=== PATIENT | female | born 1935 | race Caucasian/White ===

== ENCOUNTER 2016-11-27 21:25 | Emergency (ER) | payer MEDICARE, BC ==
[2015-12-25 11:12] VITALS: BMI 22.3
[~2016-11-27 21:25] MED LIST: AMOXICILLIN500 M1 PO; ARMOUR THYROID120 MG PO; CHERATUSSIN AC473 ML PO; COLACE100 MG PO; COREG25 MG PO; ELIQUIS5 MG PO; FISH OIL 1,0001 CA1 PO; MECLIZINE HCL25 MG PO; NEURONTIN 300300 MG PO; ONDANSETRON4 MG/2 M3 IV; PROTONIX40 MG PO; SINGULAIR10 MG PO; SYNTHROID88 MCG PO; TIKOSYN250 MCG PO; TOPROL XL25 MG PO; VALIUM5 MG PO; ZANAFLEX4 MG PO; ZOFRAN4 MG PO; ZOLOFT100 MG PO; ZYRTEC10 MG PO
[2016-11-27 23:09] LABS: BASOPHILS 0.3 % (0.0-2.0); EOSINOPHILS 3.7 % (0-7); HEMOGLOBIN 9.6 g/dL (12-16); IMMATURE GRANULOCYTES 0.3 % (0-5); LYMPHOCYTES 33.8 % (15-50); MCH 28.8 pg (26.0-34.0); MCV 90.1 fL (80.0-100.0); MEAN PLATELET VOLUME 8.7 fL (7.4-10.4); MONOCYTES 10.8 % (2-11); NEUTROPHILS 51.1 % (40-80); RBC 3.33 10x6/uL (4.00-5.40); RDW 13.4 % (11.5-14.5); WBC 6.2 10x3/uL (4.8-10.8)
[2016-11-27 23:17] LABS: PLATELET COUNT 189 10x3/uL (130-400)
[2016-11-27 23:22] LABS: ANION GAP 13.5 mmol/L (8-16); BILIRUBIN - TOTAL 0.2 mg/dL (0.2-1.3); CALCIUM 8.5 mg/dL (8.5-10.1); CARBON DIOXIDE 26.9 mmol/L (21.0-32.0); POTASSIUM - SERUM 3.4 mmol/L (3.5-5.1); PROTEIN - SERUM 6.9 g/dL (6.4-8.2)
[2016-11-27 23:32] LABS: APTT 31.6 SECONDS (22.8-39.4); INR 1.13 (0.85-1.17); PROTIME 14.3 SECONDS (11.6-15.0)
== END 2016-11-27 23:56 | disposition home or self-care (01) ==
LOC: D.ER 21:25
PROVIDERS: Physician Assistant Medical
DX: S00.83XA Contusion of other part of head, initial encounter (principal); W18.30XA Fall on same level, unspecified, initial encounter; Y93.89 Activity, other specified; Y92.019 Unspecified place in single-family (private) house as the place of occurrence of the external cause; I48.91 Unspecified atrial fibrillation; J45.909 Unspecified asthma, uncomplicated; E20.9 Hypoparathyroidism, unspecified; Z95.0 Presence of cardiac pacemaker; Z86.73 Personal history of transient ischemic attack (TIA), and cerebral infarction without residual deficits; Z79.01 Long term (current) use of anticoagulants

== ENCOUNTER 2017-05-07 04:31 | Inpatient (IN) | payer MEDICARE, BC ==
[~2017-05-07] VITALS: Ht 162.6 cm; Wt 59.0 kg
[2017-05-07 05:08] LABS: APPEARANCE CLEAR (CLEAR); BILIRUBIN NEGATIVE (NEGATIVE); COLOR YELLOW (YELLOW); GLUCOSE NEGATIVE (NEGATIVE); KETONE NEGATIVE (NEGATIVE); LEUKOCYTE ESTERASE NEGATIVE (NEGATIVE); NITRITE NEGATIVE (NEGATIVE); PROTEIN NEGATIVE (NEGATIVE); SPECIFIC GRAVITY 1.015 (1.005-1.020); UROBILINOGEN NORMAL (NORMAL)
[2017-05-07 05:36] LABS: BASOPHILS 0.1 % (0-2); EOSINOPHILS 0.8 % (0-7); HEMOGLOBIN 9.4 g/dL (12-16); IMMATURE GRANULOCYTES 0.2 % (0-5); LYMPHOCYTES 12.5 % (15-50); MCH 28.6 pg (26.0-34.0); MCHC 32.4 g/dL (31.0-37.0); MCV 88.1 fL (80.0-100.0); MEAN PLATELET VOLUME 8.7 fL (7.4-10.4); MONOCYTES 9.5 % (2-11); NEUTROPHILS 76.9 % (40-80); PLATELET COUNT 174 10x3/uL (130-400); RBC 3.29 10x6/uL (4.00-5.40); WBC 9.1 10x3/uL (4.8-10.8)
[2017-05-07 05:50] LABS: ALBUMIN 2.8 g/dL (3.4-5.0); ANION GAP 9.1 mmol/L (8-16); BILIRUBIN - TOTAL 0.4 mg/dL (0.2-1.3); CALCIUM 8.5 mg/dL (8.5-10.1); CARBON DIOXIDE 29.5 mmol/L (21.0-32.0); CREATININE - SERUM 1.2 mg/dL (0.6-1.3); POTASSIUM - SERUM 3.6 mmol/L (3.5-5.1); PROTEIN - SERUM 6.5 g/dL (6.4-8.2)
--- NOTE | 2017-05-07 07:40 | NUR ---
PT AOX4 RESP EVEN AND NONLABORED PT DENIES NEEDS AT THIS TIME IV TO RIGHT FOREARM PATENT AND INTACT AT THIS TIME RIGHT KNEE BANDAGED FROM PREVIOUS SURGERY AT ANOTHER FACILITY. PICC TO RIGHT UPPER ARN PATENT AND INTACT AT THIS TIME FROM ANOTHER FACILITY. SRX2 BED AT LOWEST SETTING CALL LIGHT WITHIN REACH WILL CONTINUE TO MONITOR
[2017-05-07 09:08] VITALS: BP 111/55; BMI 22.3
--- NOTE | 2017-05-07 09:22 | NUR ---
PT AOX4 RESP EVEN AND NONLABORED PT DENIES NEEDS AT THIS TIME SRX2 BGED AT LOWEST SETTING CALL LIGHT WITHIN REACH WILL CONTINUE TO MONITOR
[2017-05-07] MEDS ORDERED: LEXAPRO10 MG PO (09:29)
[2017-05-07] MEDS ORDERED: DEXILANT60 MG PO (09:30)
[2017-05-07] MEDS ORDERED: FLUTICASONE PRO16 GM NASAL (09:31)
[2017-05-07 14:13] VITALS: BP 121/67
[2017-05-07 14:57] VITALS: Ht 162.6 cm; Wt 59.0 kg
[2017-05-07 16:46] VITALS: BP 128/77
--- NOTE | 2017-05-07 19:15 | NUR ---
REC REPORT, ASSUMED CARE OF PATIENT. ALERT/AWAKE DENIES PAIN OR ANY NEEDS. R UA PICC WITH NS INFUSING AT 30ML/HR. O2 AT 2L/NC. RR 18 EVEN U/L. ORIENTED TO CL FOR ANY NEEDS.
[2017-05-07 20:00] VITALS: BP 82/54
[2017-05-08 00:08] VITALS: BP 129/58
--- NOTE | 2017-05-08 00:11 | NUR ---
REC RT UPDRAFT TX. DENIES ANY NEEDS OR DISCOMFORTS.
--- NOTE | 2017-05-08 01:28 | NUR ---
REPORT RECEIVED FROM SHMUEL PRETTY AND CARE OF PT ASSUMED. PT RESTING QUIETLY AT THIS TIME. RIGHT PICC PATENT WITH NS INFUSING AT KVO. O2 IN USE AT 2L VIA NC. WILL MONITOR CLOSLEY FOR NEEDS.
[2017-05-08 04:00] VITALS: BP 129/66
[2017-05-08 04:31] LABS: BASOPHILS 0.4 % (0-2); EOSINOPHILS 3.1 % (0-7); HEMATOCRIT 28.4 % (36.0-48.0); IMMATURE GRANULOCYTES 0.4 % (0-5); LYMPHOCYTES 18.4 % (15-50); MCH 28.2 pg (26.0-34.0); MCHC 31.7 g/dL (31.0-37.0); MEAN PLATELET VOLUME 8.6 fL (7.4-10.4); MONOCYTES 9.1 % (2-11); NEUTROPHILS 68.6 % (40-80); PLATELET COUNT 164 10x3/uL (130-400); RBC 3.19 10x6/uL (4.00-5.40); RDW 14.9 % (11.5-14.5)
[2017-05-08 04:32] LABS: WBC 6.8 10x3/uL (4.8-10.8)
[2017-05-08 04:52] LABS: ALBUMIN 2.4 g/dL (3.4-5.0); ANION GAP 9.3 mmol/L (8-16); BILIRUBIN - TOTAL 0.5 mg/dL (0.2-1.3); CALCIUM 8.2 mg/dL (8.5-10.1); CARBON DIOXIDE 31.1 mmol/L (21.0-32.0); CREATININE - SERUM 1.3 mg/dL (0.6-1.3); POTASSIUM - SERUM 3.4 mmol/L (3.5-5.1)
--- NOTE | 2017-05-08 09:00 | NUR ---
ASSESSMENT COMPLETE. R PICC LINE PATENT. NS INFUSING AT KVO. O2 2L NC IN USE. DRESSING C/D/I TO R KNEE. DENIES ANY NEEDS AT THIS TIME.
--- NOTE | 2017-05-08 09:30 | NUR ---
CPM APPLIED TO R KNEE.
[2017-05-08 09:50] VITALS: BP 129/68
[2017-05-08 11:51] VITALS: BP 109/67
--- NOTE | 2017-05-08 12:30 | NUR ---
CPM REMOVED. UP TO BATHROOM WITH WALKER.
--- NOTE | 2017-05-08 15:00 | NUR ---
RESTING QUIETLY IN BED. CPM IN USE. FAMILY AT BEDSIDE. DENIES ANY NEEDS AT PRESENT.
[2017-05-08 16:20] VITALS: BP 110/64
--- NOTE | 2017-05-08 17:00 | NUR ---
NO CHANGES NOTED AT THIS TIME.
--- NOTE | 2017-05-08 19:00 | NUR ---
REPORT RECEIVED AND CARE OF PT ASSUMED. PT SITTING UP IN BED WATCHING TV. RIGHT PICC LINE SL. DRESSING ON RIGHT KNEE INTACT. WILL MONITOR CLOSELY FOR NEEDS.
[2017-05-08 20:00] VITALS: BP 133/57
--- NOTE | 2017-05-08 20:50 | NUR ---
HS MEDICATIONS GIVEN. WILL CONTINUE TO MONITOR FOR NEEDS.
--- NOTE | 2017-05-08 21:00 | NUR ---
GAVE HS SNACK OF CHOCOLATE ICE CREAM X2.
[2017-05-09] VITALS: BP 129/71
[2017-05-09 04:00] VITALS: BP 108/45
[2017-05-09 04:37] LABS: BASOPHILS 0.3 % (0-2); EOSINOPHILS 6.4 % (0-7); HEMATOCRIT 27.8 % (36.0-48.0); IMMATURE GRANULOCYTES 0.7 % (0-5); LYMPHOCYTES 23.4 % (15-50); MCH 28.9 pg (26.0-34.0); MCHC 32.4 g/dL (31.0-37.0); MCV 89.4 fL (80.0-100.0); MEAN PLATELET VOLUME 8.6 fL (7.4-10.4); NEUTROPHILS 57.2 % (40-80); PLATELET COUNT 179 10x3/uL (130-400); RBC 3.11 10x6/uL (4.00-5.40); RDW 14.7 % (11.5-14.5); WBC 5.8 10x3/uL (4.8-10.8)
[2017-05-09 04:44] LABS: ANION GAP 11.5 mmol/L (8-16); CALCIUM 8.6 mg/dL (8.5-10.1); CREATININE - SERUM 1.3 mg/dL (0.6-1.3); MAGNESIUM - SERUM 1.7 mg/dL (1.8-2.4); POTASSIUM - SERUM 3.5 mmol/L (3.5-5.1)
--- NOTE | 2017-05-09 07:33 | NUR ---
SLEEPING, NO DISTRESS NOTED, CALL LIGHT IN REACH, BED LOWEST POSITION, WILL CONTINUE TO MONITOR
[2017-05-09 08:00] VITALS: BP 140/65
[2017-05-09 11:00] VITALS: BP 129/71
[2017-05-09 20:00] VITALS: BP 124/56
[2017-05-10] VITALS: BP 160/76
--- NOTE | 2017-05-10 00:51 | NUR ---
RN NOTE: PT SLEEPING ON LEFT SIDE WITH EYES CLOSED AND UNLABORED BREATHING. O2 IN USE VIA NC AT 2L. WILL CONTINUE TO MONITOR FOR NEEDS. CALL LIGHT WITHIN REACH.
[2017-05-10 03:10] LABS: BASOPHILS 0.3 % (0-2); EOSINOPHILS 5.5 % (0-7); HEMOGLOBIN 9.7 g/dL (12-16); IMMATURE GRANULOCYTES 0.9 % (0-5); LYMPHOCYTES 23.1 % (15-50); MCH 28.7 pg (26.0-34.0); MCHC 32.3 g/dL (31.0-37.0); MCV 88.8 fL (80.0-100.0); MEAN PLATELET VOLUME 8.5 fL (7.4-10.4); MONOCYTES 12.9 % (2-11); NEUTROPHILS 57.3 % (40-80); PLATELET COUNT 195 10x3/uL (130-400); RBC 3.38 10x6/uL (4.00-5.40); RDW 14.5 % (11.5-14.5); WBC 5.8 10x3/uL (4.8-10.8)
[2017-05-10 03:25] LABS: ALBUMIN 2.5 g/dL (3.4-5.0); ANION GAP 9.5 mmol/L (8-16); BILIRUBIN - TOTAL 0.4 mg/dL (0.2-1.3); CALCIUM 8.9 mg/dL (8.5-10.1); CARBON DIOXIDE 33.1 mmol/L (21.0-32.0); CREATININE - SERUM 1.4 mg/dL (0.6-1.3); POTASSIUM - SERUM 3.6 mmol/L (3.5-5.1); PROTEIN - SERUM 6.3 g/dL (6.4-8.2)
[2017-05-10 04:00] VITALS: BP 137/50
--- NOTE | 2017-05-10 07:29 | NUR ---
PT RESTING IN BED WITH NO VISABLE SIGNS OF PAIN OR DISCOMFORT, NURSE IN ROOM. BED IN LOW POSITION AND CALL LIGHT WITHIN REACH. WILL CONTINUE TO MONITOR.
--- NOTE | 2017-05-10 07:45 | NUR ---
PT ASSESSEMNT COMPLETE NO ACUTE DISTRESS NOTED DRESSIN INTACT TO RIGHT KNEE. CLEAN AND DRY. ALL ADLS PER STAFF MINIMAL ASSIST PICC LINE NOTED TO RIGHT INNER ARM WITH NO FLUSH OR REDRAW.
[2017-05-10 08:59] VITALS: BP 173/77
--- NOTE | 2017-05-10 10:26 | NUR ---
Patient Name: LAILA NERI Admission Status: ER Accout number: [id number] Admission Date: 05-07-2017 : 1935 Admission Diagnosis: Attending: ERIS TRIPLETT Current LOS: 3 Anticipated DC Date: 05-13-2017 Planned Disposition: Home with Home Health Primary Insurance: MEDICARE A & B Discharge Planning Comments: CM MET WITH PATIENT REGARDING D/C NEEDS AND PLANS. PATIENT STATED SHE LIVES WITH HER SPOUSE (ELYSSA) AND WILL RETURN HOME AT DISCHARGE. PATIENT HAS 3 STEPS W/RAILS TO ENTER HOME AND NO STAIRS INSIDE. PATIENT STATED SHE HAS A NIECE THAT LIVES A FEW DOORS DOWN. PATIENT IS INDEPENDENT WITH HER CARE AND HAS A WALKER, BS COMMODE, SHOWER CHAIR, OXYGEN 2L, AND PORTABLE O2 AT HOME. PATIENTS PCP IS DR. AMARO AND PHARMACY IS [facility]. PATIENT WAS D/C FROM [facility] ON 05/06 AND WAS ADMITTED HERE ON 05/07. PATIENT IS CURRENT WITH [facility] AND MAURY DELIVERED HER ABX TO HER HOME ON THE . CM WILL CONTINUE TO FOLLOW PATIENT WITH D/C NEEDS AND PLANS. PCP DR. SONDRA FRITZ AT [facility]- [phone] ELYSSA (SPOUSE) [phone] Pelletizer: Cori Frances
--- NOTE | 2017-05-10 10:35 | NUR ---
Is the patient Alert and Oriented? Yes 0 * How many steps to enter\exit or inside your home? 3 W/RAILS 0 * PCP DR. AMARO 0 * Pharmacy [facility] 0 * Preadmission Environment Home with Family 0 * ADLs Independent 0 * Equipment Bedside Commode Oxygen Shower Chair Walker 0 * Other Equipment PORTABLE O2 ([employer] O2) 0 * Community resources currently utilized Home Health 0 * Please name any agencies selected above. [facility] 0 * Additional services required to return to the preadmission environment? Yes 0 * Can the patient safely return to the preadmission environment? Yes 0 * Has this patient been hospitalized within the prior 30 days at any hospital? Yes 0 Grand Total: 0
[2017-05-10 11:41] VITALS: BP 120/62
[2017-05-10] MEDS ORDERED: VANCOMYCIN 1 GM/1 G1 IV (13:23)
--- NOTE | 2017-05-10 14:32 | NUR ---
CM REASSESSMENT NOTE: PATIENT IS DISCHARGING HOME TODAY. FAMILY DRIVING HER. PATIENT IS CURRENT WITH [facility] AND THEY ARE AWARE OF DISCHARGE. JENNIFER IS DELIVERING ABX TONIGHT TO HOME. HORTENCIA JAMES
--- NOTE | 2017-05-10 17:31 | NUR ---
PT DISCHARGED TO HOME WITH HOME HEALTH CARE TO FOLLOW FOR IV ABT AT HOME
== END 2017-05-10 17:32 | disposition home health service (06) | DRG 195 ==
LOC: D.ER 04:31 → D.MS 07:51
PROVIDERS: Emergency Medicine; Family Medicine; ADMIT Family Medicine
PROC: 3C1ZX8Z Irrigation of Indwelling Device using Irrigating Substance, External Approach (ICD-10-PCS; principal; 2017-05-10)
DX: J18.9 Pneumonia, unspecified organism (principal); E87.70 Fluid overload, unspecified; J45.909 Unspecified asthma, uncomplicated; I10 Essential (primary) hypertension; Z95.0 Presence of cardiac pacemaker; I50.9 Heart failure, unspecified; I48.2 Chronic atrial fibrillation; K21.9 Gastro-esophageal reflux disease without esophagitis; J38.01 Paralysis of vocal cords and larynx, unilateral; D64.9 Anemia, unspecified

== ENCOUNTER → 2017-05-22 17:18 | Outpatient (CLI) | payer MEDICARE, BC ==
[2017-05-07 14:57] VITALS: BMI 22.3
[~2017-05-22 17:18] MED LIST changes: +DEXILANT60 MG PO; +FLUTICASONE PRO16 GM NASAL; +LEXAPRO10 MG PO; +VANCOMYCIN 1 GM/1 G1 IV
[2017-05-22 18:11] LABS: CREATININE - SERUM 1.3 mg/dL (0.6-1.3); VANCOMYCIN - TROUGH 12.3 ug/mL (10.0-20.0)
== END | disposition home or self-care (01) ==
LOC: D.LABREF 17:18
PROVIDERS: Specialist
DX: T84.53XA Infection and inflammatory reaction due to internal right knee prosthesis, initial encounter (principal); I11.0 Hypertensive heart disease with heart failure; I50.9 Heart failure, unspecified

== ENCOUNTER → 2017-05-26 13:52 | Outpatient (CLI) | payer MEDICARE, BC ==
[2017-05-07 14:57] VITALS: BMI 22.3
[2017-05-26 14:21] LABS: CREATININE - SERUM 1.3 mg/dL (0.6-1.3); VANCOMYCIN - TROUGH 13.4 ug/mL (10.0-20.0)
== END | disposition home or self-care (01) ==
LOC: D.LABREF 13:52
PROVIDERS: Specialist
DX: T84.53XA Infection and inflammatory reaction due to internal right knee prosthesis, initial encounter (principal); Z79.2 Long term (current) use of antibiotics; Z45.2 Encounter for adjustment and management of vascular access device

== ENCOUNTER → 2017-05-30 15:09 | Outpatient (CLI) | payer MEDICARE, BC ==
[2017-05-07 14:57] VITALS: BMI 22.3
[2017-05-30 15:38] LABS: BASOPHILS 1.7 % (0-2); EOSINOPHILS 10.1 % (0-7); HEMATOCRIT 30.8 % (36.0-48.0); HEMOGLOBIN 9.8 g/dL (12-16); LYMPHOCYTES 37.7 % (15-50); MCH 28.5 pg (26.0-34.0); MCHC 31.8 g/dL (31.0-37.0); MCV 89.5 fL (80.0-100.0); MEAN PLATELET VOLUME 9.8 fL (7.4-10.4); NEUTROPHILS 37.5 % (40-80); PLATELET COUNT 188 10x3/uL (130-400); RBC 3.44 10x6/uL (4.00-5.40); RDW 14.2 % (11.5-14.5); WBC 3.6 10x3/uL (4.8-10.8)
[2017-05-30 15:56] LABS: ALBUMIN 3.2 g/dL (3.4-5.0); ANION GAP 11.9 mmol/L (8-16); BILIRUBIN - TOTAL 0.31 mg/dL (0.2-1.3); CALCIUM 8.6 mg/dL (8.5-10.1); CREATININE - SERUM 1.1 mg/dL (0.6-1.3); POTASSIUM - SERUM 4.9 mmol/L (3.5-5.1); PROTEIN - SERUM 7.3 g/dL (6.4-8.2); VANCOMYCIN - TROUGH 18.1 ug/mL (10.0-20.0)
== END | disposition home or self-care (01) ==
LOC: D.LABREF 15:09
PROVIDERS: Specialist
DX: Z51.81 Encounter for therapeutic drug level monitoring (principal); Z79.2 Long term (current) use of antibiotics; I50.9 Heart failure, unspecified

== ENCOUNTER → 2017-06-07 13:39 | Outpatient (CLI) | payer MEDICARE, BC ==
[2017-05-07 14:57] VITALS: BMI 22.3
[2017-06-07 14:13] LABS: CREATININE - SERUM 1.2 mg/dL (0.6-1.3); VANCOMYCIN - TROUGH 15.8 ug/mL (10.0-20.0)
== END | disposition home or self-care (01) ==
LOC: D.LABREF 13:39
PROVIDERS: Specialist
DX: T84.53XA Infection and inflammatory reaction due to internal right knee prosthesis, initial encounter (principal); Z79.2 Long term (current) use of antibiotics; Z45.2 Encounter for adjustment and management of vascular access device

== ENCOUNTER → 2017-06-24 12:44 | Outpatient (CLI) | payer MEDICARE, BC ==
[2017-05-07 14:57] VITALS: BMI 22.3
[2017-06-24 13:27] LABS: BASOPHILS 0.4 % (0-2); EOSINOPHILS 4.3 % (0-7); HEMATOCRIT 31.8 % (36.0-48.0); HEMOGLOBIN 10.5 g/dL (12-16); IMMATURE GRANULOCYTES 0.2 % (0-5); LYMPHOCYTES 27.7 % (15-50); MCH 29.7 pg (26.0-34.0); MCV 89.8 fL (80.0-100.0); MEAN PLATELET VOLUME 8.9 fL (7.4-10.4); MONOCYTES 7.1 % (2-11); NEUTROPHILS 60.3 % (40-80); PLATELET COUNT 194 10x3/uL (130-400); RBC 3.54 10x6/uL (4.00-5.40); RDW 14.4 % (11.5-14.5); WBC 4.9 10x3/uL (4.8-10.8)
[2017-06-24 14:45] LABS: ERYTHROCYTE SEDIMENTATION RATE 35 mm/hr (0-30)
== END | disposition home or self-care (01) ==
LOC: D.LAB 12:44
PROVIDERS: Orthopaedic Surgery Adult Reconstructive Orthopaedic Surgery
DX: Z89.521 Acquired absence of right knee (principal)

== ENCOUNTER 2019-01-28 11:39 | Observation (INO) | payer MEDICARE, BC ==
[~2019-01-28] VITALS: Ht 162.6 cm; Wt 63.5 kg
[2019-01-28] MEDS ORDERED: ASMANEX0.24 GM INH (11:49)
[2019-01-28] MEDS ORDERED: ALBUTEROL SULF8.5 GM (11:50)
[2019-01-28] MEDS ORDERED: HYDROCODON-ACE1 EAC7 PO (11:51)
[2019-01-28] MEDS ORDERED: CITRUCEL500 MG (11:53)
[2019-01-28 13:35] LABS: BASOPHILS 0.2 % (0-2); EOSINOPHILS 2.6 % (0-7); IMMATURE GRANULOCYTES 0.2 % (0-5); LYMPHOCYTES 18.7 % (15-50); MCH 30.5 pg (26.0-34.0); MCHC 33.3 g/dL (31.0-37.0); MCV 91.4 fL (80.0-100.0); MEAN PLATELET VOLUME 9.2 fL (7.4-10.4); MONOCYTES 8.3 % (2-11); PLATELET COUNT 173 10x3/uL (130-400); RBC 3.61 10x6/uL (4.00-5.40); RDW 12.7 % (11.5-14.5); WBC 5.8 10x3/uL (4.8-10.8)
[2019-01-28 13:45] LABS: ALBUMIN 3.5 g/dL (3.4-5.0); ANION GAP 9.6 mmol/L (8-16); BILIRUBIN - TOTAL 0.3 mg/dL (0.2-1.3); CALCIUM 8.9 mg/dL (8.5-10.1); CARBON DIOXIDE 28.9 mmol/L (21.0-32.0); POTASSIUM - SERUM 3.5 mmol/L (3.5-5.1); PROTEIN - SERUM 6.9 g/dL (6.4-8.2)
[2019-01-28 13:47] VITALS: BP 121/74
[2019-01-28] MEDS ORDERED: SYNTHROID100 MCG PO (14:57)
[2019-01-28] MEDS ORDERED: ALBUTEROL SULF8.5 GM INH (14:59)
[2019-01-28 15:01] VITALS: BP 167/61; BMI 24.0
--- NOTE | 2019-01-28 15:52 | MORECARE ---
CASE MANAGEMENT DISCHARGE SUMMARY PATIENT: LAILA NERI UNIT: [id number] ADM DATE: 01/28/19 AGE: 83 : 37 SEX: F ROOM/BED: D.2207 AUTHOR: ZAIN PONCE PHYSICIAN: REFERRING PHYSICIAN: PEPITO GATICA MD DATE OF SERVICE: 01/28/19 Discharge Plan Patient Name: LAILA NERI Facility: [facility]:[place] : 1935 Planned Disposition: Home Anticipated Discharge Date: Discharge Date: Expected LOS: Initial Reviewer: [email or web address] Initial Review Date: 01/28/2019 Generated: 01/28/19 4:52 pm Patient Name: LAILA NERI Page [phone] at 1552 All edits/amendments must be made on the electronic document DICTATION DATE: 01/28/19 155 SLEEP LAB TECHNOLOGIST: ANTONIO 01/28/19 155 RPT#: [id number] DC DATE: STATUS: ADM IN [facility] [address] [place] [address] END OF REPORT
--- NOTE | 2019-01-28 15:59 | MORECARE ---
CASE MANAGEMENT DISCHARGE SUMMARY PATIENT: LAILA NERI UNIT: [id number] ADM DATE: 01/28/19 AGE: 83 : 37 SEX: F ROOM/BED: D.8137 AUTHOR: ROSARIO,DOC PHYSICIAN: REFERRING PHYSICIAN: PEPITO GATICA MD DATE OF SERVICE: 01/28/19 Discharge Plan Patient Name: LAILA NERI Facility: [facility]:[place] : 1935 Planned Disposition: Home Anticipated Discharge Date: Discharge Date: Expected LOS: Initial Reviewer: [email or web address] Initial Review Date: 01/28/2019 Generated: 01/28/19 4:59 pm Comments DCP- Discharge Planning Updated by [email or web address]: Mary Mon on 01/28/19 2:[address] Patient Name: LAILA NERI Admission Status: ER Accout number: [id number] Admission Date: 01-28-2019 : 1935 Admission Diagnosis: Attending: PEPITO BELCHER Current LOS: 1 Anticipated DC Date: Planned Disposition: Home Primary Insurance: MEDICARE A & B Discharge Planning Comments: CM MET WITH PT AFTER VERBAL CONSENT TO DO INITIAL CM ASSESSMENT. CM EXPLAINED THE ROLE OF A CM AND SERVICES AVAILABLE LIKE HOME HEALTH, REHAB AND DME. PT STATED SHE WILL RETURN HOME WITH SPOUSE. SHE HAS WALKER AT HOME. SHE STATES HOME IS SAFE DC PLAN. WILL TAKE HOME AT DC. CM WILL CONT TO FOLLOW THRU STAY Panel Machine Operator: Mary Mon DCPIA - Discharge Planning Initial Assessment Updated by [email or web address]: Mary Mon on 01/28/19 3:53 pm * Is the patient Alert and Oriented? Yes * How many steps to enter\exit or inside your home? 15 * PCP SONDRA * Pharmacy [facility] [place] * Preadmission Environment Home with Family * ADLs Independent * List name and contact numbers for known caregivers / representatives who currently or will assist patient after discharge: SPOUSE * Verbal permission to speak to the caregivers and representatives has been obtained from the patient. Yes * Community resources currently utilized None * Additional services required to return to the preadmission environment? No * Can the patient safely return to the preadmission environment? Yes * Has this patient been hospitalized within the prior 30 days at any hospital? No Last DP export: 01/28/19 2:52 p Patient Name: LAILA NERI Page [id number] at 1559 All edits/amendments must be made on the electronic document DICTATION DATE: 01/28/191558 PROFESSOR OF SURGERY: ANTONIO 01/28/191558 RPT#: [id number] DC DATE: STATUS: ADM IN [facility] [address] [place] [address] END OF REPORT
[2019-01-28 17:09] VITALS: BP 166/66
--- NOTE | 2019-01-28 17:39 | NUR ---
AAOX4.PT SIGNED REFUSAL FOR BED ALARM. CO OF PAIN TO R CLAVICLE/SHOULDER/ NECK. PERCOCET GIVEN PER MD ORDER. AT BEDSIDE. SLING TO R ARM. NO S/S OF ACUTE DISTRESS. CL IN PLACE.
--- NOTE | 2019-01-28 19:37 | NUR ---
RESTING IN BED NO NEEDS NOTED OR STATED CALL LIGHT AND FLUIDS IN REACH.
[2019-01-28 20:18] VITALS: BP 102/51
[2019-01-29] VITALS (7 sets, daily range): BP systolic 102–153; BP diastolic 51–82
[2019-01-29 06:16] LABS: BASOPHILS 0.4 % (0-2); EOSINOPHILS 3.3 % (0-7); HEMATOCRIT 31.3 % (36.0-48.0); HEMOGLOBIN 10.2 g/dL (12-16); IMMATURE GRANULOCYTES 0.2 % (0-5); LYMPHOCYTES 26.1 % (15-50); MCH 30.1 pg (26.0-34.0); MCHC 32.6 g/dL (31.0-37.0); MCV 92.3 fL (80.0-100.0); MEAN PLATELET VOLUME 9.5 fL (7.4-10.4); MONOCYTES 12.7 % (2-11); NEUTROPHILS 57.3 % (40-80); PLATELET COUNT 159 10x3/uL (130-400); RBC 3.39 10x6/uL (4.00-5.40); RDW 12.8 % (11.5-14.5); WBC 4.9 10x3/uL (4.8-10.8)
[2019-01-29 06:58] LABS: ALBUMIN 3.3 g/dL (3.4-5.0); ANION GAP 13.5 mmol/L (8-16); BILIRUBIN - TOTAL 0.44 mg/dL (0.2-1.3); CALCIUM 8.6 mg/dL (8.5-10.1); CARBON DIOXIDE 27.1 mmol/L (21.0-32.0); POTASSIUM - SERUM 3.6 mmol/L (3.5-5.1); PROTEIN - SERUM 6.7 g/dL (6.4-8.2)
--- NOTE | 2019-01-29 09:43 | NUR ---
PT ALERT X 4. BREATH SOUNDS CLEAR BILAT. TELEMETRY IN PLACE. HEMATOMA TO BACK OF HEAD. IV TO LEFT FOREARM, SALINE LOCKED. SLING TO RIGHT ARM. PT REPORTING PAIN OF 8/10, MEDICATED PER ORDERS, WILL MONITOR. BED LOW, CALL LIGHT IN REACH. NO OTHER NEEDS AT THIS TIME.
--- NOTE | 2019-01-29 19:40 | NUR ---
Resting in bed with no s/s of distress. Bed low call light and fluids in reach. sling to right arm. no needs noted or stated.
[2019-01-30 04:30] VITALS: BP 120/72
[2019-01-30 05:11] LABS: BASOPHILS 0.2 % (0-2); EOSINOPHILS 2.6 % (0-7); IMMATURE GRANULOCYTES 0.2 % (0-5); LYMPHOCYTES 29.1 % (15-50); MCH 30.3 pg (26.0-34.0); MCHC 33.3 g/dL (31.0-37.0); MCV 90.9 fL (80.0-100.0); MEAN PLATELET VOLUME 9.1 fL (7.4-10.4); MONOCYTES 11.2 % (2-11); NEUTROPHILS 56.7 % (40-80); PLATELET COUNT 156 10x3/uL (130-400); RDW 12.5 % (11.5-14.5); WBC 4.9 10x3/uL (4.8-10.8)
[2019-01-30 05:41] LABS: ALBUMIN 3.1 g/dL (3.4-5.0); ANION GAP 13.5 mmol/L (8-16); BILIRUBIN - TOTAL 0.45 mg/dL (0.2-1.3); CALCIUM 8.7 mg/dL (8.5-10.1); CARBON DIOXIDE 26.3 mmol/L (21.0-32.0); CREATININE - SERUM 0.8 mg/dL (0.6-1.3); POTASSIUM - SERUM 3.8 mmol/L (3.5-5.1); PROTEIN - SERUM 6.6 g/dL (6.4-8.2)
--- NOTE | 2019-01-30 08:18 | NUR ---
AWAKE AND ALERT.ORIENTED X3. NO C/O AT THIS TIME. LUNGS ARE CLEAR BILATERALLY, NO COUGH NOTED. SKIN IS INTACT WITHOUT REDNESS. BRUISED AREAS NOTED TO RIGHT SHOULDER, RIGHT ARM IN SLING. NEURO CHECKS WNL. HEMATOMA TO RIGHT BACK/SIDE OF HEAD DECREASED IN SIZE ACCORDING TO PATIENT. IV TO LEFT FOREARM IS PATENT WITHOUT REDNESS AT INSERTION SITE. DENIES NEEDS.
[2019-01-30 08:29] VITALS: BP 96/68
[2019-01-30 10:45] VITALS: Ht 162.6 cm; Wt 63.5 kg
--- NOTE | 2019-01-30 13:00 | NUR ---
ATE ABOUT 90% OF MEAL. WENT DOWN AND BROUGHT HER SOME FISH, WHICH SHE ENJOYED. DENIES NEEDS.
--- NOTE | 2019-01-30 14:03 | MORECARE ---
CASE MANAGEMENT DISCHARGE SUMMARY PATIENT: LAILA NERI UNIT: [id number] ADM DATE: 01/28/19 AGE: 83 : 37 SEX: F ROOM/BED: D.2202 AUTHOR: ROSARIO,DOC PHYSICIAN: REFERRING PHYSICIAN: PEPITO GATICA MD DATE OF SERVICE: 01/30/19 Discharge Plan Patient Name: LAILA NERI Facility: [facility]:[place] : 1935 Planned Disposition: Home Anticipated Discharge Date: Discharge Date: Expected LOS: Initial Reviewer: [email or web address] Initial Review Date: 01/28/2019 Generated: 01/30/19 3:03 pm Comments DCP- Discharge Planning Updated by [email or web address]: Alia Anderson on 01/30/19 1:[address] PATIENT WILL BE GOING TO [facility] IN PATIENT REHAB TODAY. THEY WILL TRANSPORT PATIENT. DCP- Discharge Planning Updated by [id number]: Mary Mon on 01/28/19 2:[address] Patient Name: LAILA NERI Admission Status: ER Accout number: [id number] Admission Date: 01-28-2019 : 1935 Admission Diagnosis: Attending: PEPITO BELCHER Current LOS: 1 Anticipated DC Date: Planned Disposition: Home Primary Insurance: MEDICARE A & B Discharge Planning Comments: CM MET WITH PT AFTER VERBAL CONSENT TO DO INITIAL CM ASSESSMENT. CM EXPLAINED THE ROLE OF A CM AND SERVICES AVAILABLE LIKE HOME HEALTH, REHAB AND DME. PT STATED SHE WILL RETURN HOME WITH SPOUSE. SHE HAS WALKER AT HOME. SHE STATES HOME IS SAFE DC PLAN. WILL TAKE HOME AT DC. CM WILL CONT TO FOLLOW THRU STAY Office Services Coordinator: Mary Mon DCPIA - Discharge Planning Initial Assessment Updated by [email or web address]: Mary Mon on 01/28/19 3:53 pm * Is the patient Alert and Oriented? Yes * How many steps to enter\exit or inside your home? 15 * PCP SONDRA * Pharmacy [facility] [place] * Preadmission Environment Home with Family * ADLs Independent * List name and contact numbers for known caregivers / representatives who currently or will assist patient after discharge: SPOUSE * Verbal permission to speak to the caregivers and representatives has been obtained from the patient. Yes * Community resources currently utilized None * Additional services required to return to the preadmission environment? No * Can the patient safely return to the preadmission environment? Yes * Has this patient been hospitalized within the prior 30 days at any hospital? No Last DP export: 01/28/19 2:59 p Patient Name: LAILA NERI Page [phone] at 1403 All edits/amendments must be made on the electronic document DICTATION DATE: 01/30/191402 EVIDENCE TECHNICIAN: ANTONIO 01/30/19 1403 RPT#: [id number] DC DATE: STATUS: ADM IN [facility] [address] [place] [address] END OF REPORT
--- NOTE | 2019-01-30 14:13 | MORECARE ---
CASE MANAGEMENT DISCHARGE SUMMARY PATIENT: LAILA NERI UNIT: [id number] ADM DATE: 01/28/19 AGE: 83 : 37 SEX: F ROOM/BED: D.2200 AUTHOR: ROSARIO,DOC PHYSICIAN: REFERRING PHYSICIAN: PEPITO GATICA MD DATE OF SERVICE: 01/30/19 Discharge Plan Patient Name: LAILA NERI Facility: [facility]:[place] : 1935 Planned Disposition: Home Anticipated Discharge Date: Discharge Date: Expected LOS: Initial Reviewer: [id number] Initial Review Date: 01/28/2019 Generated: 01/30/19 3:13 pm Comments DCP- Discharge Planning Updated by [id number]: Alia Anderson on 01/30/19 1:[address] PATIENT WILL BE GOING TO [facility] IN PATIENT REHAB TODAY. THEY WILL TRANSPORT PATIENT. DCP- Discharge Planning Updated by [email or web address]: Mary Mon on 01/28/19 2:[address] Patient Name: LAILA NERI Admission Status: ER Accout number: [id number] Admission Date: 01-28-2019 : 1935 Admission Diagnosis: Attending: PEPITO BELCHER Current LOS: 1 Anticipated DC Date: Planned Disposition: Home Primary Insurance: MEDICARE A & B Discharge Planning Comments: CM MET WITH PT AFTER VERBAL CONSENT TO DO INITIAL CM ASSESSMENT. CM EXPLAINED THE ROLE OF A CM AND SERVICES AVAILABLE LIKE HOME HEALTH, REHAB AND DME. PT STATED SHE WILL RETURN HOME WITH SPOUSE. SHE HAS WALKER AT HOME. SHE STATES HOME IS SAFE DC PLAN. WILL TAKE HOME AT DC. CM WILL CONT TO FOLLOW THRU STAY Meeting Specialist: Mary Mon DCPIA - Discharge Planning Initial Assessment Updated by [id number]: Mary Mon on 01/28/19 3:53 pm * Is the patient Alert and Oriented? Yes * How many steps to enter\exit or inside your home? 15 * PCP SONDRA * Pharmacy [facility] [place] * Preadmission Environment Home with Family * ADLs Independent * List name and contact numbers for known caregivers / representatives who currently or will assist patient after discharge: SPOUSE * Verbal permission to speak to the caregivers and representatives has been obtained from the patient. Yes * Community resources currently utilized None * Additional services required to return to the preadmission environment? No * Can the patient safely return to the preadmission environment? Yes * Has this patient been hospitalized within the prior 30 days at any hospital? No External Providers External Provider: [facility] Contact Date: Service Request Date: Service Type: Resolution: Reviewer: Comments: Last DP export: 01/30/19 1:03 p Patient Name: LAILA NERI Page [id number] at 1413 All edits/amendments must be made on the electronic document DICTATION DATE: 01/30/191412 BATTERY MECHANIC: ANTONIO 01/30/191412 RPT#: [id number] DC DATE: STATUS: ADM IN [facility] [address] [place] [address] END OF REPORT
--- NOTE | 2019-01-30 14:48 | MORECARE ---
CASE MANAGEMENT DISCHARGE SUMMARY PATIENT: LAILA NERI UNIT: [id number] ADM DATE: 01/28/19 AGE: 83 : 37 SEX: F ROOM/BED: D.0358 AUTHOR: ROSARIO,DOC PHYSICIAN: REFERRING PHYSICIAN: PEPITO GATICA MD DATE OF SERVICE: 01/30/19 Discharge Plan Patient Name: LAILA NERI Facility: [facility]:[place] : 1935 Planned Disposition: Home Anticipated Discharge Date: Discharge Date: Expected LOS: Initial Reviewer: [email or web address] Initial Review Date: 01/28/2019 Generated: 01/30/19 3:47 pm Comments DCP- Discharge Planning Updated by [email or web address]: Alia Anderson on 01/30/19 1:[address] PATIENT WILL BE GOING TO [facility] IN PATIENT REHAB TODAY. THEY WILL TRANSPORT PATIENT. DCP- Discharge Planning Updated by [id number]: Mary Mon on 01/28/19 2:[address] Patient Name: LAILA NERI Admission Status: ER Accout number: [id number] Admission Date: 01-28-2019 : 1935 Admission Diagnosis: Attending: PEPITO BELCHER Current LOS: 1 Anticipated DC Date: Planned Disposition: Home Primary Insurance: MEDICARE A & B Discharge Planning Comments: CM MET WITH PT AFTER VERBAL CONSENT TO DO INITIAL CM ASSESSMENT. CM EXPLAINED THE ROLE OF A CM AND SERVICES AVAILABLE LIKE HOME HEALTH, REHAB AND DME. PT STATED SHE WILL RETURN HOME WITH SPOUSE. SHE HAS WALKER AT HOME. SHE STATES HOME IS SAFE DC PLAN. WILL TAKE HOME AT DC. CM WILL CONT TO FOLLOW THRU STAY Cocoa Powder Mixer Operator: Mary Mon DCPIA - Discharge Planning Initial Assessment Updated by [id number]: Mary Mon on 01/28/19 3:53 pm * Is the patient Alert and Oriented? Yes * How many steps to enter\exit or inside your home? 15 * PCP SONDRA * Pharmacy [facility] [place] * Preadmission Environment Home with Family * ADLs Independent * List name and contact numbers for known caregivers / representatives who currently or will assist patient after discharge: SPOUSE * Verbal permission to speak to the caregivers and representatives has been obtained from the patient. Yes * Community resources currently utilized None * Additional services required to return to the preadmission environment? No * Can the patient safely return to the preadmission environment? Yes * Has this patient been hospitalized within the prior 30 days at any hospital? No Last DP export: 01/30/19 1:13 p Patient Name: LAILA NERI Page [phone] at 1448 All edits/amendments must be made on the electronic document DICTATION DATE: 01/30/191446 DIRECTOR STRATEGIC PLANNING: ANTONIO 01/30/191446 RPT#: [id number] DC DATE: STATUS: ADM IN [facility] [address] [place] [address] END OF REPORT
[2019-01-30 14:50] VITALS: BP 118/53
--- NOTE | 2019-01-30 15:14 | MORECARE ---
CASE MANAGEMENT DISCHARGE SUMMARY PATIENT: LAILA NERI UNIT: [id number] ADM DATE: 01/28/19 AGE: 83 : 37 SEX: F ROOM/BED: D.2201 AUTHOR: ROSARIO,DOC PHYSICIAN: REFERRING PHYSICIAN: PEPITO GATICA MD DATE OF SERVICE: 01/30/19 Discharge Plan Patient Name: LAILA NERI Facility: [facility]:[place] : 1935 Planned Disposition: Home Anticipated Discharge Date: Discharge Date: Expected LOS: Initial Reviewer: [email or web address] Initial Review Date: 01/28/2019 Generated: 01/30/19 4:13 pm Comments DCP- Discharge Planning Updated by [id number]: Alia Anderson on 01/30/19 1:[address] PATIENT WILL BE GOING TO [facility] ROOM [address] THEY WILL PROVIDE TRANSPORTATION VIA EMS TODAY. AT BEDSIDE DCP- Discharge Planning Updated by [email or web address]: Alia Anderson on 01/30/19 1:[address] PATIENT WILL BE GOING TO [facility] IN PATIENT REHAB TODAY. THEY WILL TRANSPORT PATIENT. DCP- Discharge Planning Updated by [id number]: Mary Mon on 01/28/19 2:[address] Patient Name: LAILA NERI Admission Status: ER Accout number: [id number] Admission Date: 01-28-2019 : 1935 Admission Diagnosis: Attending: PEPITO BELCHER Current LOS: 1 Anticipated DC Date: Planned Disposition: Home Primary Insurance: MEDICARE A & B Discharge Planning Comments: CM MET WITH PT AFTER VERBAL CONSENT TO DO INITIAL CM ASSESSMENT. CM EXPLAINED THE ROLE OF A CM AND SERVICES AVAILABLE LIKE HOME HEALTH, REHAB AND DME. PT STATED SHE WILL RETURN HOME WITH SPOUSE. SHE HAS WALKER AT HOME. SHE STATES HOME IS SAFE DC PLAN. WILL TAKE HOME AT DC. CM WILL CONT TO FOLLOW THRU STAY Senior Estimator: Mary Mon DCPIA - Discharge Planning Initial Assessment Updated by [email or web address]: Mary Mon on 01/28/19 3:53 pm * Is the patient Alert and Oriented? Yes * How many steps to enter\exit or inside your home? 15 * PCP SONDRA * Pharmacy [facility] [place] * Preadmission Environment Home with Family * ADLs Independent * List name and contact numbers for known caregivers / representatives who currently or will assist patient after discharge: SPOUSE * Verbal permission to speak to the caregivers and representatives has been obtained from the patient. Yes * Community resources currently utilized None * Additional services required to return to the preadmission environment? No * Can the patient safely return to the preadmission environment? Yes * Has this patient been hospitalized within the prior 30 days at any hospital? No Last DP export: 01/30/19 1:47 p Patient Name: LAILA NERI Page [id number] at 1514 All edits/amendments must be made on the electronic document DICTATION DATE: 01/30/191512 OILER BANDER: ANTONIO 01/30/191512 RPT#: [id number] DC DATE: STATUS: ADM IN [facility] [address] [place] [address] END OF REPORT
--- NOTE | 2019-01-30 15:43 | NUR ---
REPORT CALLED TO ALLYSON SANDRA RN AT [facility]. ALL QUESTIONS ANSWERED. DISCHARGE INSTRUCTIONS GIVEN BOTH VERBALLY AND WRITTEN. ALL QUESTIONS ANSWERED. PATIENT VERBALZIED UNDERSTANDING OF SAME. SL TO LEFT FOREARM D/C WITH [facility] INTACT. WAITING ON TRANSPORT TO D/C.
[2019-01-30 16:32] VITALS: BP 107/71
--- NOTE | 2019-01-30 16:50 | NUR ---
DISCHARGED TO [facility] VIA PRIVATE CAR. REQUESTED AND GIVNE ONE OXYCODONE PO FOR C/O RIGHT SHOULDER PAIN LEVEL 10. ALL BELONGINGS WITH PATIENT.
== END 2019-01-30 16:55 ==
LOC: D.ER 11:39 → D.MS 13:16 → OBSVTIME 13:33 → D.MS 01-30 16:55
PROVIDERS: Emergency Medicine; ADMIT Family Medicine; ATTEND Family Medicine
DX: S43.031A Inferior subluxation of right humerus, initial encounter (principal); I48.91 Unspecified atrial fibrillation; J45.909 Unspecified asthma, uncomplicated; M54.5 Low back pain